=== PATIENT | male | born 1985 | race Caucasian/White ===

== ENCOUNTER → 2016-12-08 | Outpatient (CLI) | payer MEDICARE, MEDICAID ==
[~2016-12-08] MED LIST: ALPRAZOLAM2 MG PO; AMITRIPTYLINE 225 MG; AMITRIPTYLINE 225 MG PO; APAP/BUTALBITAL1 TA1 PO; BENTYL10 MG OR; BLOOD PRESSURE MED; BUT/APAP/CAF TAB PO; CIPRO 500MG TA500 MG PO; CLINDAMYCIN300 MG PO; FLEXERIL10 M1 PO; IBU600 MG; IBU800 M1 PO; KEFLEX 500MG.500 MG PO; LORTAB 500 MG-11 TAB PO; MEDROL 4MG TABLE4 MG; NEURONTIN 300M300 MG PO; NOMEDS; PHENERGAN 25MG.25 M1 PO; PROAIR HFA0.09 MG/AC; RANITIDINE HCL150 MG PO; ROPINIROLE HYDRO1 MG PO; SEPTRA DS 800 M1 TAB PO; ULTRAM50 MG PO; VICODIN 7.5/501 EACH PO; XANAX 1MG TABLET1 MG PO; ZANAFLEX4 MG PO; ZANTAC 300300 MG PO; ZOFRAN ODT4 MG PO; ZOLPIDEM 10MG T10 MG
--- NOTE | 2016-12-09 06:58 | RADIOLOGY REPORT PS360 ---
MRI-L-SPINE W/O, MRI-3D RENDERING/MYELOGRAM HISTORY: Low back pain with left leg pain numbness and burning BACK PAIN ORDERING PHYSICIAN: Dipak Devlin MD PATIENT AGE: 31 years COMPARISON: 02/23/2012 TECHNIQUE: Standard multiplanar multiecho sequences are performed without contrast. 3-D MIP and myelographic images are also rendered and reviewed FINDINGS: Spinal cord ends at the L1 level. There is normal alignment. T12-L1 and L1-L2 are unremarkable. L2-L3: Degenerative disc disease. Schmorl's node is present along the anterior superior endplate of L3 with type II endplate changes. L3-L4: Mild degenerative disc disease with bulging disc with a Schmorl's node along the anterior endplate of L4 superiorly. L4-L5: Unremarkable. L5-S1: Mild concentric bulging disc versus slightly eccentric toward the right without neural impingement. No disc herniation or canal stenosis. IMPRESSION: 1. Mild spondylosis of the lumbar spine as detailed above. 2. No disc herniation or canal stenosis. 3. No significant change from 02/23/2012
== END ==
LOC: RAD 12:52
DX: M54.5 Low back pain (principal)